=== PATIENT | female | born 1970 | race Caucasian/White ===

== ENCOUNTER → 2017-03-17 | Outpatient (CLI) | payer MEDICARE, MEDICAID ==
[~2017-03-17] MED LIST: ALBU8.5H8 INH; ARIP30TA4 PO; ASCO-96 PO; ASPI-496 PO; BREX2TAB PO; BUDE10.2 INH; BUTA1CAP30 PO; BUTA1CAP59 PO; CARI3CAP PO; CELE200C PO; CHOL200024 PO; CYCL-259 PO; DIAZ2TAB3 PO; FURO-92 PO; FURO-93 PO; GABA300C10 PO; GLUC1500 PO; HYDR-3240 PO; HYDR-3307 PO; HYDR25CA94 PO; HYDR25TA11 PO; MELO15TA24 PO; MOBIC PO; MOME13HF2 INH; MONT10TA9 PO; MULT-717 PO; OMEG1CAP24 PO; OXYC-302 PO; POTA20TA91 PO; PROM25TA10 PO; RIVA10TA PO; ROPI0.2537 PO; ROPI0.5T2 PO; ROPI1TAB2 PO; SUMA100T4 PO; TRAM50TA2 PO; TRAZ50TA18 PO
[2017-03-17 15:55] LABS: HEMATOCRIT 41.3 % (34.6-47.8); HEMOGLOBIN 13.9 g/dL (11.7-16.4); WHITE BLOOD COUNT 12.8 x10^3/uL (3.4-10)
[2017-03-17 16:06] LABS: BLOOD UREA NITROGEN 10 mg/dL (7-18)
== END | disposition home or self-care (01) ==
LOC: STAR 14:22
PROVIDERS: ATTEND Orthopaedic Surgery Orthopaedic Surgery of the Spine
DX: Z01.811 Encounter for preprocedural respiratory examination (principal); Z48.811 Encounter for surgical aftercare following surgery on the nervous system; R94.31 Abnormal electrocardiogram [ECG] [EKG]; M43.22 Fusion of spine, cervical region; M54.5 Low back pain; Z96.611 Presence of right artificial shoulder joint; Z98.1 Arthrodesis status
CPT/HCPCS: 36415; 71020; 80048; 81003; 85025; 93005

== ENCOUNTER 2017-03-28 06:34 | Inpatient (IN) | payer MEDICARE, MEDICAID ==
[~2017-03-28] VITALS: Ht 157.5 cm; Wt 94.9 kg
[2017-03-28] MEDS ORDERED: LACTATED RINGERS 1,000 ML IV SCH (06:55)
[2017-03-28 07:25] VITALS: BP 122/83
[2017-03-28] MEDS ORDERED: MIDAZOLAM 1 MG/ML, 2ML ONE (08:06)
[2017-03-28] MEDS ORDERED: FENTANYL PF 100 MCG/2ML ONE ×2 (08:06)
[2017-03-28] MEDS ORDERED: TRANEXAMIC ACID 100 MG/ML, 10ML ONE (08:43)
[2017-03-28] MEDS ORDERED: THROMBIN 5,000 UNIT VIAL TP ONE (08:44)
[2017-03-28] MEDS ORDERED: LIDOCAINE/MPF 2%-EPI 1:200K, 20 ML ONE (08:44)
[2017-03-28] MEDS ORDERED: BUPIVACAINE LIPOSOME/PF INFIL ONE (09:00)
[2017-03-28] MEDS ORDERED: PROPOFOL 150 ML ONE (09:12)
[2017-03-28] MEDS ORDERED: CEFAZOLIN 1,000 MG ONE (09:14)
[2017-03-28] MEDS ORDERED: DEXAMETHASONE 4 MG/ML, 5ML ONE (09:14)
[2017-03-28] MEDS ORDERED: ONDANSETRON 2MG/ML, 2ML ONE ×2 (09:14→12:34)
[2017-03-28] MEDS ORDERED: ACETAMINOPHEN 325 MG TABLET PO PRN (11:30)
[2017-03-28] MEDS ORDERED: ALBUTEROL/IPRATROPIUM 2.5MG/0.5MG, 3 ML NPPB PRN (11:30)
[2017-03-28] MEDS ORDERED: PROMETHAZINE 25 MG/ML, 1ML IV PRN (11:30)
[2017-03-28] MEDS ORDERED: hydrALAzine 20 MG/ML, 1ML IV PRN (11:30)
[2017-03-28] MEDS ORDERED: FENTANYL PF 100 MCG/2ML IV PRN (11:30)
[2017-03-28] MEDS ORDERED: LABETALOL 5MG/ML, 20ML IV PRN (11:30)
[2017-03-28] MEDS ORDERED: ONDANSETRON 2MG/ML, 2ML IVPush PRN (11:30)
[2017-03-28] MEDS ORDERED: OXYcodone 5 MG/5 ML ORAL.SOL UDC PO PRN (11:30)
[2017-03-28] MEDS ORDERED: ALBUTEROL SULFATE 2.5 MG/3 ML NPPB PRN ×2 (11:30→14:30)
[2017-03-28] MEDS ORDERED: MEPERIDINE/PF 25MG/0.5ML IVPush PRN (11:30)
[2017-03-28] MEDS ORDERED: SUCCINYLCHOLINE 20 MG/ML, 10ML ONE (11:34)
[2017-03-28] MEDS ORDERED: ROCURONIUM 10 MG/ML ONE (11:34)
[2017-03-28] MEDS ORDERED: VANCOMYCIN 1,000 MG ONE (11:39)
[2017-03-28] MEDS ORDERED: VANCOMYCIN 1,000 MG IM ONE (11:40)
[2017-03-28] MEDS ORDERED: HYDROmorphone 1 MG/ML, 1ML ONE ×2 (11:58→12:34)
[2017-03-28] MEDS: HYDROmorphone 1 MG/ML, 1ML IV PRN ×3 (12:37→12:47)
[2017-03-28 14:15] VITALS: BP 153/93
[2017-03-28] MEDS: OXYcodone/APAP 5/325MG TABLET PO PRN ×3 (14:57→23:01)
[2017-03-28] MEDS ORDERED: TRAZODONE 100MG TABLET PO PRN (15:00)
[2017-03-28] MEDS ORDERED: BUTALB/APAP/CAFFEINE 50MG/325MG/40MG PO PRN (15:00)
[2017-03-28] MEDS ORDERED: SUMATRIPTAN 100 MG TABLET PO PRN (15:00)
[2017-03-28] MEDS: D5%-0.45NACL+KCL 20MEQ 1,000 ML IV SCH (16:01)
[2017-03-28] MEDS: DIAZEPAM 2 MG TABLET PO PRN (16:04)
[2017-03-28] MEDS: ROPINIROLE 1MG TABLET PO SCH ×2 (16:04→23:01)
[2017-03-28] MEDS: CEFAZOLIN PMX 1GM/50ML 50 ML IV SCH (17:32)
[2017-03-28] MEDS: MONTELUKAST 10 MG TABLET PO SCH (19:45)
[2017-03-28] MEDS: OMEGA-3/FISH OIL CAPSULE PO SCH (19:45)
[2017-03-28 19:46] VITALS: BP 136/77
[2017-03-28] MEDS: HYDROcodone/APAP 10/325 MG TABLET PO PRN (19:56)
[2017-03-28 23:03] VITALS: BP 106/54
[2017-03-29] MEDS: D5%-0.45NACL+KCL 20MEQ 1,000 ML IV SCH ×3 (01:00→21:00)
[2017-03-29] MEDS: DIAZEPAM 2 MG TABLET PO PRN ×4 (01:20→21:34)
[2017-03-29] MEDS: CEFAZOLIN PMX 1GM/50ML 50 ML IV SCH (01:20)
[2017-03-29] MEDS: HYDROcodone/APAP 10/325 MG TABLET PO PRN (01:21)
[2017-03-29 04:00] VITALS: BP 109/68
[2017-03-29] MEDS: OXYcodone/APAP 5/325MG TABLET PO PRN ×5 (04:41→21:34)
[2017-03-29] MEDS: ASPIRIN 81 MG TABLET EC PO SCH (05:31)
[2017-03-29 07:40] VITALS: BP 132/77
[2017-03-29] MEDS: ASCORBIC ACID 500 MG TABLET PO SCH (08:12)
[2017-03-29] MEDS: ROPINIROLE 1MG TABLET PO SCH ×3 (08:13→21:00)
[2017-03-29] MEDS: CHOLECALCIFEROL 1,000 UNIT TABLET PO SCH (08:13)
[2017-03-29] MEDS: MULTIVITAMINS/MINERALS TABLET PO SCH (08:14)
[2017-03-29] MEDS: OMEGA-3/FISH OIL CAPSULE PO SCH ×2 (08:14→21:33)
[2017-03-29] MEDS ORDERED: MELOXICAM 15 MG TABLET PO SCH (09:00)
[2017-03-29] MEDS: VRAYLAR PO SCH ×2 (09:00→15:00)
[2017-03-29] MEDS: FLUTICASONE/VILANTEROL 200-25MCG/INH INH SCH (12:51)
[2017-03-29 14:14] VITALS: BP 130/64
[2017-03-29 19:33] VITALS: BP 106/56
[2017-03-29] MEDS: MONTELUKAST 10 MG TABLET PO SCH (21:34)
[2017-03-30 00:44] VITALS: BP 105/59
[2017-03-30] MEDS: OXYcodone/APAP 5/325MG TABLET PO PRN ×5 (02:00→19:24)
[2017-03-30] MEDS: DIAZEPAM 2 MG TABLET PO PRN ×3 (04:06→16:41)
[2017-03-30] MEDS ORDERED: CATHFLO-ALTEPLASE 2 MG/2 ML CATHFLUSH ONE (05:00)
[2017-03-30] MEDS: ASPIRIN 81 MG TABLET EC PO SCH (06:00)
[2017-03-30] MEDS: D5%-0.45NACL+KCL 20MEQ 1,000 ML IV SCH ×3 (06:14→23:12)
[2017-03-30 07:40] VITALS: BP 113/58
[2017-03-30] MEDS: ASCORBIC ACID 500 MG TABLET PO SCH (08:20)
[2017-03-30] MEDS: OMEGA-3/FISH OIL CAPSULE PO SCH ×2 (08:20→19:54)
[2017-03-30] MEDS: CHOLECALCIFEROL 1,000 UNIT TABLET PO SCH (08:20)
[2017-03-30] MEDS: MULTIVITAMINS/MINERALS TABLET PO SCH (08:20)
[2017-03-30] MEDS: FLUTICASONE/VILANTEROL 200-25MCG/INH INH SCH (08:20)
[2017-03-30] MEDS: ROPINIROLE 1MG TABLET PO SCH ×3 (08:20→19:54)
[2017-03-30] MEDS: VRAYLAR PO SCH (08:21)
[2017-03-30 13:25] VITALS: BP 104/65
[2017-03-30 19:38] VITALS: BP 125/72
[2017-03-30] MEDS: MONTELUKAST 10 MG TABLET PO SCH (19:54)
[2017-03-31] MEDS: OXYcodone/APAP 5/325MG TABLET PO PRN ×4 (01:58→16:00)
[2017-03-31] MEDS: DIAZEPAM 2 MG TABLET PO PRN ×3 (02:19→16:00)
[2017-03-31 02:37] VITALS: BP 114/61
[2017-03-31] MEDS: ASPIRIN 81 MG TABLET EC PO SCH (06:17)
[2017-03-31 06:40] VITALS: BP 113/62
[2017-03-31] MEDS: FLUTICASONE/VILANTEROL 200-25MCG/INH INH SCH (08:58)
[2017-03-31] MEDS: ROPINIROLE 1MG TABLET PO SCH ×2 (08:58→16:00)
[2017-03-31] MEDS: MULTIVITAMINS/MINERALS TABLET PO SCH (08:58)
[2017-03-31] MEDS: ASCORBIC ACID 500 MG TABLET PO SCH (08:58)
[2017-03-31] MEDS: CHOLECALCIFEROL 1,000 UNIT TABLET PO SCH (08:59)
[2017-03-31] MEDS: VRAYLAR PO SCH (08:59)
[2017-03-31] MEDS: OMEGA-3/FISH OIL CAPSULE PO SCH (08:59)
[2017-03-31] MEDS: D5%-0.45NACL+KCL 20MEQ 1,000 ML IV SCH (10:00)
[2017-03-31 12:36] VITALS: BP 104/50
[2017-03-31 17:28] VITALS: BP 142/84
== END 2017-03-31 17:35 | DRG 460 ==
LOC: ORIP 06:34 → 4NOR 13:23
PROVIDERS: ADMIT Orthopaedic Surgery Orthopaedic Surgery of the Spine; ATTEND Orthopaedic Surgery Orthopaedic Surgery of the Spine
PROC: 01NB0ZZ Release Lumbar Nerve, Open Approach (ICD-10-PCS; 2017-03-28)
PROC: 0QW004Z Revision of Internal Fixation Device in Lumbar Vertebra, Open Approach (ICD-10-PCS; 2017-03-28)
PROC: 4A11X4G Monitoring of Peripheral Nervous Electrical Activity, Intraoperative, External Approach (ICD-10-PCS; 2017-03-28)
PROC: 0SG0071 Fusion of Lumbar Vertebral Joint with Autologous Tissue Substitute, Posterior Approach, Posterior Column, Open Approach (ICD-10-PCS; principal; 2017-03-28 09:00)
DX: M48.061 Spinal stenosis, lumbar region without neurogenic claudication (principal); M47.816 Spondylosis without myelopathy or radiculopathy, lumbar region; M51.36 Other intervertebral disc degeneration, lumbar region
CPT/HCPCS: 72100; C1713; C9290; J0690; J1100; J1170; J2250; J2405; J2704; J3010; J3370; J3490; C1762; J0330; J3480; J7120; Q0177

== ENCOUNTER 2017-04-28 12:54 | Emergency (ER) | payer MEDICARE, MEDICAID ==
[~2017-04-28] VITALS: Ht 157.5 cm; Wt 106.0 kg
[2017-04-28 14:18] VITALS: BP 124/67
== END 2017-04-28 14:21 | disposition home or self-care (01) ==
LOC: ED 13:20
DX: M51.34 Other intervertebral disc degeneration, thoracic region (principal); M51.36 Other intervertebral disc degeneration, lumbar region; R06.00 Dyspnea, unspecified; G89.29 Other chronic pain; M54.6 Pain in thoracic spine; Z90.710 Acquired absence of both cervix and uterus; Z96.611 Presence of right artificial shoulder joint; Z96.653 Presence of artificial knee joint, bilateral
CPT/HCPCS: 71020; 93005; 99284

== ENCOUNTER → 2017-08-28 | Outpatient (CLI) | payer MEDICARE, MEDICAID ==
[~2017-08-28] MED LIST changes: -GLUC1500 PO; +GLUC15006 PO
== END | disposition home or self-care (01) ==
LOC: RAD 15:17
PROVIDERS: ATTEND Nurse Practitioner Family
DX: R60.9 Edema, unspecified (principal); M79.604 Pain in right leg; M79.89 Other specified soft tissue disorders

== ENCOUNTER → 2017-10-13 | Outpatient (CLI) | payer MEDICARE, MEDICAID | END | disposition home or self-care (01) | LOC: CFH 13:23 | PROVIDERS: ATTEND Internal Medicine Critical Care Medicine | DX: J45.909 Unspecified asthma, uncomplicated (principal) | CPT/HCPCS: 71046 ==

== ENCOUNTER → 2018-01-19 | Outpatient (CLI) | payer MEDICARE, MEDICAID ==
[~2018-01-19] MED LIST changes: +TRAZ-136 PO; -TRAZ50TA18 PO
== END | disposition home or self-care (01) ==
LOC: WOUND 13:55
PROVIDERS: ATTEND Internal Medicine
DX: L89.623 Pressure ulcer of left heel, stage 3 (principal); J45.909 Unspecified asthma, uncomplicated; I10 Essential (primary) hypertension; F31.9 Bipolar disorder, unspecified; G47.30 Sleep apnea, unspecified; M19.90 Unspecified osteoarthritis, unspecified site; Z90.710 Acquired absence of both cervix and uterus
CPT/HCPCS: 97597; G0463; WOU0463

== ENCOUNTER → 2018-01-26 | Outpatient (CLI) | payer MEDICARE, MEDICAID | END | disposition home or self-care (01) | LOC: WOUND 09:46 | PROVIDERS: ATTEND Internal Medicine | DX: L89.623 Pressure ulcer of left heel, stage 3 (principal); J45.909 Unspecified asthma, uncomplicated; M19.90 Unspecified osteoarthritis, unspecified site; G90.09 Other idiopathic peripheral autonomic neuropathy; I10 Essential (primary) hypertension; G47.33 Obstructive sleep apnea (adult) (pediatric); E66.8 Other obesity; F31.81 Bipolar II disorder; Z68.34 Body mass index [BMI] 34.0-34.9, adult; Z90.710 Acquired absence of both cervix and uterus | CPT/HCPCS: 97597 ==

== ENCOUNTER → 2018-02-02 | Outpatient (CLI) | payer MEDICARE, MEDICAID | END | disposition home or self-care (01) | LOC: WOUND 09:31 | PROVIDERS: ATTEND Internal Medicine | DX: L89.623 Pressure ulcer of left heel, stage 3 (principal); G47.33 Obstructive sleep apnea (adult) (pediatric); J45.909 Unspecified asthma, uncomplicated; G62.9 Polyneuropathy, unspecified; M19.90 Unspecified osteoarthritis, unspecified site; I10 Essential (primary) hypertension; F31.81 Bipolar II disorder; E66.8 Other obesity; Z68.34 Body mass index [BMI] 34.0-34.9, adult; Z90.710 Acquired absence of both cervix and uterus | CPT/HCPCS: 97597 ==

== ENCOUNTER → 2019-10-12 | Outpatient (CLI) | payer MEDICARE, MEDICAID ==
[~2019-10-12] MED LIST changes: -HYDR-3307 PO; +HYDR-36 PO; +HYDR-826 PO; -HYDR25TA11 PO; +MONT10TA11 PO; -MONT10TA9 PO; -RIVA10TA PO; +RIVA10TA2 PO; -ROPI0.2537 PO; +ROPI0.254 PO; -ROPI0.5T2 PO; +ROPI0.5T4 PO; -ROPI1TAB2 PO; +ROPI1TAB4 PO; -TRAZ-136 PO; +TRAZ50TA66 PO
== END | disposition home or self-care (01) ==
LOC: STAR 10:18
PROVIDERS: ATTEND Pain Medicine Interventional Pain Medicine
DX: Z01.812 Encounter for preprocedural laboratory examination (principal)
CPT/HCPCS: 71046; 93005

== ENCOUNTER 2019-11-20 14:33 | Emergency (ER) | payer MEDICARE, MEDICAID ==
[~2019-11-20] VITALS: Ht 160 cm; Wt 85.5 kg
[~2019-11-20 14:33] MED LIST changes: +HYDR-3246 PO; -HYDR-36 PO
[2019-11-20] MEDS ORDERED: MECLIZINE CHEWABLE 25 MG TAB ONE (15:44)
[2019-11-20 15:45] LABS: BASOPHILS # (AUTO) 0.06 x10^3/uL (0-0.1); BASOPHILS % (AUTO) 1 % (0-1); EOSINOPHILS # (AUTO) 0.13 x10^3/uL (0-0.4); EOSINOPHILS % (AUTO) 2 % (1-7); LYMPHOCYTES # (AUTO) 2.09 x10^3/uL (1-3.4); LYMPHOCYTES % (AUTO) 24 % (22-44); MD NO; MEAN CORPUSCULAR HEMOGLOBIN 31.8 pg (27.0-34.8); MEAN CORPUSCULAR HGB CONC 33.8 g/dL (32.4-35.8); MEAN CORPUSCULAR VOLUME 94.2 fL (80-100); MEAN PLATELET VOLUME 8.4 fL (7.4-10.4); MONOCYTES # (AUTO) 0.52 x10^3/uL (0.2-0.8); MONOCYTES % (AUTO) 6 % (2-9); NEUTROPHILS # (AUTO) 5.81 x10^3/uL (1.8-6.8); NEUTROPHILS % (AUTO) 67 % (42-75); PLATELET COUNT 306 x10^3/uL (130-400); RED BLOOD COUNT 4.41 x10^6/uL (3.82-5.3)
--- NOTE | 2019-11-20 15:46 | NUR ---
Pt provided with Antivert for dizziness. Med rec complete to the best of this RN's ability, pt is a poor historian.
[2019-11-20 15:56] LABS: ANION GAP 8 mmol/L (5-15); CALCIUM 8.9 mg/dL (8.5-10.1); CHLORIDE 111 mmol/L (98-107); CREATININE 0.95 mg/dL (0.55-1.02)
[2019-11-20] MEDS ORDERED: MECLIZINE CHEWABLE 25 MG TAB PO ONE (16:00)
--- NOTE | 2019-11-20 16:25 | NUR ---
Pt states improvement post Meclizine admin. States feeling better, dizziness resolved.
[2019-11-20 16:48] VITALS: BP 116/62
--- NOTE | 2019-11-20 16:48 | NUR ---
Spoke with pt's mother, will knot picker cloth from waiting room.
== END 2019-11-20 16:54 | disposition home or self-care (01) ==
LOC: ED 15:42
DX: R42 Dizziness and giddiness (principal); R55 Syncope and collapse; R05 Cough; R94.31 Abnormal electrocardiogram [ECG] [EKG]; I10 Essential (primary) hypertension; J45.909 Unspecified asthma, uncomplicated; Z90.710 Acquired absence of both cervix and uterus; Z90.89 Acquired absence of other organs; Z96.653 Presence of artificial knee joint, bilateral
CPT/HCPCS: 36415; 80048; 85025; 93005; 99284

== ENCOUNTER 2019-11-26 19:42 | Emergency (ER) | payer MEDICARE, MEDICAID ==
[~2019-11-26] VITALS: Ht 160 cm; Wt 83.0 kg
[2019-11-26] MEDS ORDERED: [UNRECOGNIZED DRUG - OTHER] PO (19:58)
[2019-11-26] MEDS ORDERED: ONDANSETRON 2MG/ML, 2ML ONE (20:06)
[2019-11-26] MEDS ORDERED: MAALOX/HYOSCYAMINE/LIDOCAINE 45 ML BTL ONE (20:07)
[2019-11-26] MEDS ORDERED: FAMOTIDINE 20 MG/2 ML ONE (20:07)
[2019-11-26] MEDS ORDERED: SODIUM CHLORIDE 0.9% 1,000ML IVBOLUS ONE (20:30)
[2019-11-26] MEDS ORDERED: FAMOTIDINE 20 MG/2 ML IV ONE (20:30)
[2019-11-26] MEDS ORDERED: ONDANSETRON 2MG/ML, 2ML IVPush ONE (20:30)
[2019-11-26] MEDS ORDERED: SODIUM CHLORIDE FLUSH 10ML SYR IVF ONE (20:30)
[2019-11-26] MEDS ORDERED: MAALOX/HYOSCYAMINE/LIDOCAINE 45 ML BTL PO ONE (20:30)
--- NOTE | 2019-11-26 20:39 | NUR ---
IV STARTED, PT MEDICATED PER MAR, PT TO IMAGING AT THIS TIME. PT UPDATED ON POC.
--- NOTE | 2019-11-26 21:05 | NUR ---
URINE SAMPLE OBTAINED. PT UPDATED ON POC.
--- NOTE | 2019-11-26 21:11 | NUR ---
PT PROVIDED WATER FOR PO CHALLENGE.
[2019-11-26 21:13] LABS: ALANINE AMINOTRANSFERASE 19 U/L (12-78); ALBUMIN 3.6 g/dL (3.4-5.0); ANION GAP 4 mmol/L (5-15); CALCIUM 8.3 mg/dL (8.5-10.1); CHLORIDE 113 mmol/L (98-107); CREATININE 0.88 mg/dL (0.55-1.02)
[2019-11-26 21:15] LABS: ALKALINE PHOSPHATASE 72 U/L (45-117); BILIRUBIN,TOTAL 0.3 mg/dL (0.2-1.0); TOTAL PROTEIN 7.2 g/dL (6.4-8.2)
[2019-11-26 21:19] LABS: MICROSCOPIC NOT IND
[2019-11-26 21:21] LABS: MEAN CORPUSCULAR HEMOGLOBIN 31.5 pg (27.0-34.8); MEAN CORPUSCULAR HGB CONC 32.8 g/dL (32.4-35.8); MEAN PLATELET VOLUME 8.3 fL (7.4-10.4); PLATELET COUNT 332 x10^3/uL (130-400); RED BLOOD COUNT 4.17 x10^6/uL (3.82-5.3); RED CELL DISTRIBUTION WIDTH 12.8 % (9.6-15.2)
[2019-11-26 22:01] LABS: BASOPHILS # (AUTO) 0.05 x10^3/uL (0-0.1); BASOPHILS % (AUTO) 0 % (0-1); EOSINOPHILS # (AUTO) 0.03 x10^3/uL (0-0.4); EOSINOPHILS % (AUTO) 0 % (1-7); LYMPHOCYTES # (AUTO) 1.12 x10^3/uL (1-3.4); LYMPHOCYTES % (AUTO) 8 % (22-44); MD SCAN; MONOCYTES # (AUTO) 0.56 x10^3/uL (0.2-0.8); MONOCYTES % (AUTO) 4 % (2-9); NEUTROPHILS # (AUTO) 12.55 x10^3/uL (1.8-6.8); NEUTROPHILS % (AUTO) 88 % (42-75)
[2019-11-26 22:07] VITALS: BP 123/58
== END 2019-11-26 22:10 | disposition home or self-care (01) ==
LOC: ED 21:42
DX: R11.2 Nausea with vomiting, unspecified (principal); J45.909 Unspecified asthma, uncomplicated; I10 Essential (primary) hypertension; Z90.710 Acquired absence of both cervix and uterus; Z90.89 Acquired absence of other organs; Z88.6 Allergy status to analgesic agent; Z88.8 Allergy status to other drugs, medicaments and biological substances; Z88.4 Allergy status to anesthetic agent; Z96.653 Presence of artificial knee joint, bilateral
CPT/HCPCS: 36415; 74021; 80053; 81003; 83690; 85025; 96361; 96374; 96375; 99284; J2405; J3490; J7030

== ENCOUNTER 2020-07-13 06:59 | Day surgery (SDC) | payer MEDICARE, MEDICAID ==
[~2020-07-13] VITALS: Ht 160 cm; Wt 87.0 kg
[~2020-07-13 06:59] MED LIST changes: +CARB15DR3 EACHEYE; +CHOL10003 PO; -CYCL-259 PO; +CYCL10TA2 PO; +DICL100G29 TP; +ESCI10TA97 PO; +ESTR1PAT25 TP; +FLUT9.9S NAS; +HYDR-1067 PO; -HYDR-3240 PO; -HYDR-3246 PO; +HYDR-3248 PO; +LIDOCAINE OINTMENT TP; -MONT10TA11 PO; +MONT10TA17 PO; -OXYC-302 PO; +OXYC1TAB14 PO; +RIME75TA PO; +ZONI100C29 PO; +[UNRECOGNIZED DRUG - OTHER] PO; +[UNRECOGNIZED DRUG - OTHER] PO
[2020-07-13 07:22] VITALS: BP 142/80
[2020-07-13] MEDS ORDERED: CHLORHEXIDINE 15 ML UDC MM ONE (07:30)
[2020-07-13] MEDS ORDERED: LACTATED RINGERS 1,000 ML IV SCH (07:30)
[2020-07-13] MEDS ORDERED: FENTANYL PF 100 MCG/2ML ONE ×2 (09:19→12:10)
[2020-07-13] MEDS ORDERED: MIDAZOLAM 1 MG/ML, 2ML ONE (09:19)
[2020-07-13] MEDS ORDERED: BUPIVACAINE/PF 0.5% ONE (09:44)
[2020-07-13] MEDS ORDERED: LIDOCAINE/PF 1%, 30ML ONE (09:44)
[2020-07-13] MEDS ORDERED: PROPOFOL 10 MG/ML, 20ML ONE (10:11)
[2020-07-13] MEDS ORDERED: CEFAZOLIN 1,000 MG ONE (10:11)
[2020-07-13] MEDS ORDERED: ONDANSETRON 2MG/ML, 2ML ONE (10:11)
[2020-07-13] MEDS ORDERED: DEXAMETHASONE 4 MG/ML, 1ML ONE (10:11)
[2020-07-13] MEDS ORDERED: HYDROcodone/APAP 7.5-325MG/15ML UDC PO PRN (10:30)
[2020-07-13] MEDS ORDERED: PROMETHAZINE 25 MG/ML, 1ML IVPush PRN (10:30)
[2020-07-13] MEDS ORDERED: FENTANYL PF 100 MCG/2ML IV PRN (10:30)
[2020-07-13] MEDS ORDERED: MEPERIDINE/PF 25MG/0.5ML IVPush PRN (10:30)
[2020-07-13] MEDS ORDERED: ONDANSETRON 2MG/ML, 2ML IVPush PRN (10:30)
[2020-07-13] MEDS ORDERED: OXYcodone 5 MG/5 ML ORAL.SOL UDC PO PRN (10:30)
[2020-07-13] MEDS ORDERED: HYDROmorphone 1 MG/ML, 1ML INJ IVPush PRN (10:30)
[2020-07-13] MEDS ORDERED: MEPERIDINE/PF 25MG/ML,1ML ONE (11:39)
[2020-07-13] MEDS ORDERED: OXYcodone 5 MG/5 ML ORAL.SOL UDC ONE (12:10)
== END 2020-07-13 14:25 | disposition home or self-care (01) ==
LOC: OUT 06:59
PROVIDERS: ATTEND Orthopaedic Surgery Foot and Ankle Surgery
DX: M25.372 Other instability, left ankle (principal); M62.469 Contracture of muscle, unspecified lower leg; M13.872 Other specified arthritis, left ankle and foot; Q66.72 Congenital pes cavus, left foot; J45.909 Unspecified asthma, uncomplicated; G40.909 Epilepsy, unspecified, not intractable, without status epilepticus; G47.33 Obstructive sleep apnea (adult) (pediatric); Z88.8 Allergy status to other drugs, medicaments and biological substances; Z91.013 Allergy to seafood; Z79.2 Long term (current) use of antibiotics; Z79.899 Other long term (current) drug therapy; Z20.822 Contact with and (suspected) exposure to COVID-19; Z87.891 Personal history of nicotine dependence; Z72.89 Other problems related to lifestyle; Z82.49 Family history of ischemic heart disease and other diseases of the circulatory system; Z98.890 Other specified postprocedural states
CPT/HCPCS: 27658; 27687; 27695; 28740; 64447; 64450; 73630; 93005; C1713; J0690; J1100; J2175; J2250; J2405; J2704; J3010; J7120; U0003; 76000

== ENCOUNTER 2020-10-30 10:25 | Day surgery (SDC) | payer MEDICARE, MEDICAID ==
[~2020-10-30] VITALS: Ht 160 cm; Wt 92.7 kg
[~2020-10-30 10:25] MED LIST changes: -HYDR-1067 PO; +HYDR-2214 PO
[2020-10-30 10:59] VITALS: BP 134/90
[2020-10-30] MEDS ORDERED: LIDOCAINE-MPF 1%, 5ML ONE (12:33)
[2020-10-30] MEDS ORDERED: OMNIPAQUE 180 MG/ML, 10ML VIAL ONE (13:00)
== END 2020-10-30 17:10 | disposition home or self-care (01) ==
LOC: OUT 10:25
PROVIDERS: ATTEND Orthopaedic Surgery
DX: M54.5 Low back pain (principal); M48.061 Spinal stenosis, lumbar region without neurogenic claudication; G40.909 Epilepsy, unspecified, not intractable, without status epilepticus; M19.90 Unspecified osteoarthritis, unspecified site; Z79.1 Long term (current) use of non-steroidal anti-inflammatories (NSAID); Z79.899 Other long term (current) drug therapy; Z98.1 Arthrodesis status; Z88.8 Allergy status to other drugs, medicaments and biological substances
CPT/HCPCS: 62284; 72132; 77003; Q9965

== ENCOUNTER 2020-12-29 14:07 | Outpatient (CLI) | payer MEDICARE, MEDICAID ==
[~2020-12-29 14:07] MED LIST changes: +OXYC1TAB12 PO; -OXYC1TAB14 PO
== END 2020-12-29 23:59 | disposition home or self-care (01) ==
LOC: CFH 14:07
PROVIDERS: ATTEND Psychiatry & Neurology Child & Adolescent Psychiatry
DX: G31.84 Mild cognitive impairment of uncertain or unknown etiology (principal); G40.89 Other seizures; R27.0 Ataxia, unspecified
CPT/HCPCS: 70450